=== PATIENT | female | born 1980 | race Two or more races ===

== ENCOUNTER 2016-08-12 02:50 | Inpatient (IN) | payer MEDICAID ==
[2016-08-12 04:09] VITALS: BMI 36.1
[2016-08-12] MEDS ORDERED: LACTATED RINGERS 1,000 ML ONE ×2 (04:15→04:46)
[2016-08-12] MEDS ORDERED: IV START KIT ONE (04:15)
[2016-08-12] MEDS ORDERED: MORPHINE SULFATE (DURAMORPH) 1 MG/ML 10ML AMP ONE (04:22)
[2016-08-12] MEDS ORDERED: SPINAL PROCEDURAL TRAY 1 EACH ONE (04:23)
[2016-08-12] MEDS ORDERED: OXYTOCIN 10 UNITS/ML VIAL ONE ×3 (04:23→05:38)
[2016-08-12] MEDS ORDERED: CEFAZOLIN SODIUM 2 GRAM PREMIX 2 G in Premix (D5W) 100 ml 1 EACH IV PRN (04:35)
[2016-08-12 04:41] LABS: HEMATOCRIT 39.2 % (37.0-47.0); HEMOGLOBIN 13.6 gm/l (12.0-16.0); MEAN CORPUSCULAR HEMOGLOBIN 29.5 pg (27.0-31.0); MEAN CORPUSCULAR HGB CONC 34.7 g/dl (33.0-37.0); RED CELL DISTRIBUTION WIDTH 13.6 % (11.5-14.5)
[2016-08-12] MEDS ORDERED: CEFAZOLIN SODIUM 2 GRAM PREMIX 100 ML IV ONE (04:47)
[2016-08-12] MEDS ORDERED: ONDANSETRON 4 MG/2ML 2 ML VIAL ONE (04:53)
[2016-08-12] MEDS ORDERED: DIPHENHYDRAMINE HCL 50 MG/1 ML VIAL ONE (04:53)
[2016-08-12] MEDS ORDERED: EPHEDRINE SULFATE 50 MG/ML 1ML VIAL ONE (04:53)
[2016-08-12] MEDS: LACTATED RINGERS 1,000 ML IV SCH ×3 (04:56→16:45)
[2016-08-12] MEDS ORDERED: DIPHENHYDRAMINE HCL 25 MG CAPSULE PO PRN (06:38)
[2016-08-12] MEDS ORDERED: DIPHENHYDRAMINE HCL 50 MG/1 ML VIAL IV PRN ×2 (06:38→07:00)
[2016-08-12] MEDS ORDERED: ONDANSETRON 4 MG/2ML 2 ML VIAL IV PRN ×2 (06:38→07:00)
[2016-08-12] MEDS ORDERED: LANOLIN 50 APPLIC/7G TUBE TP PRN (06:38)
[2016-08-12] MEDS ORDERED: IBUPROFEN 800 MG TABLET PO PRN (06:38)
--- NOTE | 2016-08-12 06:43 | PCMBPN ---
Brief Post Op Note: Date of Procedure: 08/12/16 Start Time: see anesth record Preoperative Diagnosis: 1. term iup, ama, h/o c section, active genital herpes, latent syphillis, gbs+. Postoperative Diagnosis: 1. Same Procedure: rcs Surgeon: Hilda Sanchez MD Assist:Dr. Shayy Anderson Anesthesia: Chandu Lancaster crna. Spinal. Findings: vertex girl, normal tubes/ovaries/uterus/placenta. Condition: stable Complications: none IV Fluids: 2200 mLs of LR Urine Output: 300 mLs Estimated Blood Loss: 600 mLs Tourniquet Time: N/A Specimens: N/A Implants: n/a Drains: [N/A]
[2016-08-12] MEDS ORDERED: HYDROMORPHONE HCL 1 MG/ML SYRINGE IV PRN (06:57)
[2016-08-12] MEDS ORDERED: NALBUPHINE HCL 20 MG/ML AMP IV PRN (07:00)
[2016-08-12] MEDS ORDERED: PROMETHAZINE HCL 25 MG/ML VIAL IM PRN (07:00)
[2016-08-12] MEDS ORDERED: NALOXONE HCL 0.4 MG/ML VIAL IV PRN (07:00)
[2016-08-12] MEDS ORDERED: EPHEDRINE SULFATE 50 MG/ML 1ML VIAL IV PRN (07:00)
[2016-08-12] MEDS ORDERED: KETOROLAC TROMETHAMINE 30 MG/ML 1 ML VIAL ONE (07:31)
[2016-08-12] MEDS: FERROUS SULFATE (65 Fe) 325 MG TABLET PO SCH ×2 (09:02→15:06)
[2016-08-12] MEDS: ACYCLOVIR 400 MG TABLET PO SCH ×3 (09:02→21:06)
[2016-08-12] MEDS: PRENATAL VIT/FE FUMARATE/FA 1 TABLET PO SCH ×2 (09:02→15:07)
[2016-08-12] MEDS: DOCUSATE SODIUM 100 MG CAPSULE PO SCH ×2 (09:02→21:05)
--- NOTE | 2016-08-12 09:21 | OP ---
Margarita Vazquez : 1980 [id number] DATE OF SURGERY: 08/12/2016 PREOPERATIVE DIAGNOSES: 1. Term intrauterine . 2. History of section. 3. Active genital herpes. 4. Advanced maternal age. 5. Latin Syphilis. 6. Group B Streptococcus positive. 7. Premature rupture of membranes. POSTOPERATIVE DIAGNOSES: 1. Term intrauterine . 2. History of section. 3. Active genital herpes. 4. Advanced maternal age. 5. Latin Syphilis. 6. Group B Streptococcus positive. 7. Premature rupture of membranes. PROCEDURE: Repeat section. SURGEON: Hilda Sanchez M.D. CUSTOMER CONTACT SPECIALIST: Dr. Shayy Anderson. ANESTHESIA: SHAE Guardado, spinal. BRIEF DESCRIPTION: This is a 36-year-old G5, P3, now P4 who presented to [facility] with premature rupture of membranes which was confirmed after her presentation. Given her history of section and active herpetic lesions she was taken for a section. DESCRIPTION OF OPERATION: The patient was taken to the operating room where spinal anesthesia was placed without difficulty. She was then placed in the supine position and prepped and draped for a sterile procedure. A pfannenstiel incision was then made sharply through the level of the skin through the subcutaneous tissue to the rectus fascia. The rectus fascia was then transversely incised with Isabel scissors. The anterior fascia was then dissected free from the underlying rectus muscles and some scar tissue with blunt dissection and Isabel scissors as well as electrocautery. This was also performed inferiorly. The parietal peritoneum and rectus muscles were then bluntly and the parietal peritoneum was entered bluntly with gentle traction then applied and excellent visualization of the uterus. Bladder blade was placed. An attempt was made to free the vesicouterine peritoneum for the formation of a bladder flap with some effect. The uterus was then entered and was noted to be quite thick as the lower segment had not thinned out. The incision was extended laterally with bandage scissors as it was so thick the bag of brian was then entered and had clear fluid. The was noted to be in vertex presentation and head was flexed and elevated through the uterine incision with moderate fundal pressure. The oropharynx was bulb suctioned. The rest of the female infant was then delivered with a moderate fundal pressure atraumatically. After delayed cord clamped of approximately 1 minute the cord was clamped and cut and the infant was passed to RN for resuscitation. Cord blood was collected and sent to the lab. Placenta was delivered with gentle traction and appeared to be within normal limits and intact. The uterus was then delivered onto the abdominal wall and the remaining bloody contents wiped free with a clean dry lap. The incision was grasped with ring forceps and closed in a two layer approach because of the thickness of the uterus. After a few figure of eight stitches in imbricating layer there was excellent hemostasis. Tubes and ovaries appeared within normal limits. She did have some small fibroids scattered throughout the fundus of the uterus. The remaining blood contents in the abdominal cavity were wiped free with a clean dry lap. The uterus was then placed back into the abdominal cavity and the gutters cleaned of debris with a clean dry lap as well. The uterine incision was once again visualized and showed excellent hemostasis. The parietal peritoneum as well as rectus muscles were then reapproximated with an 0 Vicryl suture in the usual fashion. There was no subfascial bleeding and the fascia was then closed in each corner and proceeding towards the midline. All sponge and needle counts were correct at that point. The subcutaneous tissue showed excellent hemostasis and the skin was then closed with a subcuticular stitch. All sponge and needle counts were once again reported as correct. The patient tolerated the procedure well. Estimated blood loss was 600 mL. Fluids given 2200 mL and urine output was 300 mL. The patient was transported to postoperative recovery room in excellent condition. JOB: [id number]
[2016-08-12] MEDS: IBUPROFEN 600 MG TABLET PO PRN ×2 (12:40→23:11)
--- NOTE | 2016-08-12 17:03 | PDOC36 ---
Provider Note Subject: Addendum: Note: Pt was seen and tx'd for latent syphilis by [facility]. Initial labs: TPall Ab (EIA) positive RPR NR TPall Ab (TP PA) Reactive Follow up lab RPR Titer 1:1 28wk labs: TPall Ab (EIA) positive RPR NR TPall Ab (TP PA) Reactive d/w ID consult at Dr. Los Jones. Stated c/w treated syphilis. TPall ab will always be positive, but expect RPR titer to go to zero, but has decreased sufficiently 1:1. A/P: Treated syphilis Confirm still neg with screening lab
[2016-08-13] MEDS: OXYCODONE/ACETAMINOPHEN 5/325 MG TABLET PO PRN ×5 (00:56→22:33)
[2016-08-13] MEDS: IBUPROFEN 600 MG TABLET PO PRN ×4 (04:19→22:33)
[2016-08-13] MEDS ORDERED: KETOROLAC TROMETHAMINE 30 MG/ML 1 ML VIAL IV PRN (05:00)
[2016-08-13 06:50] LABS: HEMATOCRIT 33.9 % (37.0-47.0); HEMOGLOBIN 11.5 gm/l (12.0-16.0)
[2016-08-13] MEDS: LACTATED RINGERS 1,000 ML IV SCH (07:21)
[2016-08-13] MEDS ORDERED: ACYCLOVIR 400 MG TABLET PO SCH (09:00)
[2016-08-13] MEDS: FERROUS SULFATE (65 Fe) 325 MG TABLET PO SCH (09:34)
[2016-08-13] MEDS: DOCUSATE SODIUM 100 MG CAPSULE PO SCH ×2 (09:34→21:11)
[2016-08-13] MEDS: PRENATAL VIT/FE FUMARATE/FA 1 TABLET PO SCH (09:34)
[2016-08-13] MEDS: ACYCLOVIR 400 MG TABLET PO SCH ×3 (09:34→21:11)
--- NOTE | 2016-08-13 13:49 | PDOC44 ---
- Subjective Day: 2 Reports Pain Tolerable - Objective Temp Pulse Resp BP Pulse Ox 98.1 F 87 18 103/60 98 08/13/16 09:30 08/13/16 09:30 08/13/16 09:30 08/13/16 09:30 08/12/16 09:36 Lab Results 08/13/16 06:40 Hgb 11.5 L D Hct 33.9 L Current Medications Generic Name Dose Route Start Last Admin Trade Name Freq PRN Reason Stop Dose Admin Acyclovir 400 mg 08/12/16 09:00 08/13/16 09:34 Zovirax PO 400 mg TID ZEESHAN Administration Diphenhydramine HCl 25 mg 08/12/16 06:38 Benadryl PO Q6H PRN Itching (Mild/Moderate) Diphenhydramine HCl 25 mg 08/12/16 06:38 Benadryl IV Q6H PRN Itching (Severe) Docusate Sodium 100 mg 08/12/16 09:00 08/13/16 09:34 Colace PO 100 mg BID ZEESHAN Administration Emollient Ointment 1 applic 08/12/16 06:38 [id number] TP PRN PRN sore nipples Ferrous Sulfate 325 mg 08/12/16 09:00 08/13/16 09:34 Ferrous Sulfate PO 325 mg DAILY ZEESHAN Administration Hydromorphone HCl 0.25 - 0.5 mg 08/12/16 06:57 Dilaudid IV PRN PRN Pain (Breakthrough) Lactated Ringer's 1,000 mls @ 100 mls/hr 08/12/16 04:45 08/13/16 07:21 Lactated Ringers IV Not Given .Q10H ZEESHAN Ibuprofen 600 mg 08/12/16 07:08 08/13/16 10:46 Motrin PO 600 mg Q6H PRN Administration Pain Ketorolac Tromethamine 30 mg 08/13/16 05:00 Toradol IV Q6H PRN Pain (Mild/Moderate) Multivi/Iron Carb/Fe Sulf/FA/Prenat 1 tab 08/12/16 09:00 08/13/16 09:34 Plus PO 1 tab DAILY ZEESHAN Administration Ondansetron HCl 4 mg 08/12/16 06:38 Zofran IV Q6H PRN Nausea/Vomiting Oxycodone/Acetaminophen 1 - 2 tab 08/12/16 06:38 08/13/16 09:34 Percocet 5/325 PO 1 tab Q4H PRN Administration Pain (Moderate) Sodium Chloride 10 ml 08/12/16 06:38 08/12/16 21:05 Normal Saline 10ml Flush IV 10 ml PRN PRN Administration IV Flush Sodium Chloride 10 ml 08/12/16 09:00 08/13/16 10:49 Normal Saline 10ml Flush IV 10 ml Q8HR ZEESHAN Administration - Physical Exam General: Afebrile Psych/Mental Status: Mood/Affect Appropriate, Judgment/Insight Intact, Bonding Well Lungs: Clear to Auscultation Bilaterally, Normal Air Movement Cardiovascular: Regular Rate and Rhythm Fundus: Firm, Below Umbilicus Wound QUALITY LEAD: Well Approximated - Problems:Assessment/Plan (1) Delivery by section of full-term Status: Acute Assessment/Plan: Repeat CS for history of and active herpes lesion POD#1 Currently doing well Continue routine care (2) History of latent syphilis Status: Acute Assessment/Plan: Per [facility], pt had positive syphilis and was treated for early latent syphilis that same day. Trep ab tests will always be positive, but RPR now NR, RPR titer was 1:1, d/w ID, Dr Madison at [facility], stated c/w successfully treated syphilis and would hope RPR titer would eventually go to zero. Patient had RPR titer drawn 08/12/16, currently awaiting those results. They should be back tomorrow. Pt with h/o Chlamydia, HSV and Syphillis. SW saw today and patient states transmission coming from significant other, but she doesn't ask questions. Needs to have close followup at [place]. (3) Genital herpes affecting Status: Acute Assessment/Plan: New infection at 29w0d, HSV2+ via culture. Started on acyclovir 400mg TID. Pt developed lesions
[2016-08-14] MEDS: IBUPROFEN 600 MG TABLET PO PRN ×3 (04:57→21:46)
[2016-08-14] MEDS: PRENATAL VIT/FE FUMARATE/FA 1 TABLET PO SCH (09:10)
[2016-08-14] MEDS: FERROUS SULFATE (65 Fe) 325 MG TABLET PO SCH (09:10)
[2016-08-14] MEDS: OXYCODONE/ACETAMINOPHEN 5/325 MG TABLET PO PRN ×3 (09:10→21:46)
[2016-08-14] MEDS: DOCUSATE SODIUM 100 MG CAPSULE PO SCH ×2 (09:10→21:46)
[2016-08-14] MEDS: ACYCLOVIR 400 MG TABLET PO SCH ×3 (09:11→21:46)
--- NOTE | 2016-08-14 15:57 | PDOC44 ---
- Subjective Day: 2 Reports Flatus, Reports Pain Tolerable, Reports , Reports Lochia Light, Reports Tolerating Regular Diet - Objective Temp Pulse Resp BP Pulse Ox 98.6 F 81 16 110/52 98 08/14/16 09:00 08/14/16 09:00 08/14/16 09:00 08/14/16 09:00 08/12/16 09:36 Current Medications Generic Name Dose Route Start Last Admin Trade Name Freq PRN Reason Stop Dose Admin Acyclovir 400 mg 08/12/16 09:00 08/14/16 09:11 Zovirax PO 400 mg TID ZEESHAN Administration Diphenhydramine HCl 25 mg 08/12/16 06:38 Benadryl PO Q6H PRN Itching (Mild/Moderate) Diphenhydramine HCl 25 mg 08/12/16 06:38 Benadryl IV Q6H PRN Itching (Severe) Docusate Sodium 100 mg 08/12/16 09:00 08/14/16 09:10 Colace PO 100 mg BID ZEESHAN Administration Emollient Ointment 1 applic 08/12/16 06:38 [id number] TP PRN PRN sore nipples Ferrous Sulfate 325 mg 08/12/16 09:00 08/14/16 09:10 Ferrous Sulfate PO 325 mg DAILY ZEESHAN Administration Hydromorphone HCl 0.25 - 0.5 mg 08/12/16 06:57 Dilaudid IV PRN PRN Pain (Breakthrough) Lactated Ringer's 1,000 mls @ 100 mls/hr 08/12/16 04:45 08/13/16 07:21 Lactated Ringers IV Not Given .Q10H ZEESHAN Ibuprofen 600 mg 08/12/16 07:08 08/14/16 11:54 Motrin PO 600 mg Q6H PRN Administration Pain Ketorolac Tromethamine 30 mg 08/13/16 05:00 Toradol IV Q6H PRN Pain (Mild/Moderate) Multivi/Iron Carb/Fe Sulf/FA/Prenat 1 tab 08/12/16 09:00 08/14/16 09:10 Plus PO 1 tab DAILY ZEESHAN Administration Ondansetron HCl 4 mg 08/12/16 06:38 Zofran IV Q6H PRN Nausea/Vomiting Oxycodone/Acetaminophen 1 - 2 tab 08/12/16 06:38 08/14/16 09:10 Percocet 5/325 PO 1 tab Q4H PRN Administration Pain (Moderate) Sodium Chloride 10 ml 08/12/16 06:38 08/13/16 21:10 Normal Saline 10ml Flush IV 10 ml PRN PRN Administration IV Flush Sodium Chloride 10 ml 08/12/16 09:00 08/13/16 21:58 Normal Saline 10ml Flush IV Not Given Q8HR ZEESHAN - Physical Exam General: Afebrile, No Acute Distress Psych/Mental Status: Mood/Affect Appropriate, Bonding Well Neurological: Alert, Oriented x 4 Lungs: Clear to Auscultation Bilaterally Cardiovascular: Regular Rate and Rhythm Breast: Nipples Intact Fundus: Firm, Midline Extremities: Full ROM, No Edema, No Tenderness Skin: Normal Color, Warm, Dry, Intact, No Rash Wound MEDICAL CARE ADMINISTRATOR: Dressing Clean/Dry/Intact, Well Approximated - Problems:Assessment/Plan (1) Delivery by section of full-term Status: Acute Assessment/Plan: Repeat CS for history of and active herpes lesion POD#2 Currently doing well Continue routine care (2) Genital herpes affecting Status: Acute Assessment/Plan: New infection at 29w0d, HSV2+ via culture. Started on acyclovir 400mg TID. Pt developed lesions and was taken for a Cesarian section (3) History of latent syphilis Status: Acute Assessment/Plan: Per [facility], pt had positive syphilis and was treated for early latent syphilis that same day. Trep ab tests will always be positive, but RPR was NR on last check in clinic. Case d/w ID, Dr Madison at [facility], stated c /w successfully treated syphilis and would hope RPR titer would eventually go to zero. Patient had labs drawn 08/12/16. Unfortunately results still show "pending" today. I called [facility] services in [place] and discussed this with Julian in serology who explained to me that per the reverse algorithm, pt was non-reactive for RPR which then reflexes to TPPA and this was positive. As RPR is non-reactive, this means titers are zero. (Apparently [facility] is having difficulties pushing these results through to [employer], I asked for a fax and placed in into patient's chart). -Would advise to check again with health department or ID re management, both mom and baby will probably need screening at certain intervals. Pt with also with h/o Chlamydia and HSV. SW saw yesterday and patient states transmission coming from significant other, but she doesn't ask questions. Needs to have close followup at [place]. Disposition: Anticipate DC Home Tomorrow
[2016-08-15] MEDS: OXYCODONE/ACETAMINOPHEN 5/325 MG TABLET PO PRN ×2 (03:02→09:41)
[2016-08-15] MEDS: IBUPROFEN 600 MG TABLET PO PRN (04:52)
[2016-08-15] MEDS: ACYCLOVIR 400 MG TABLET PO SCH (09:40)
[2016-08-15] MEDS: FERROUS SULFATE (65 Fe) 325 MG TABLET PO SCH (09:40)
[2016-08-15] MEDS: PRENATAL VIT/FE FUMARATE/FA 1 TABLET PO SCH (09:41)
[2016-08-15] MEDS: DOCUSATE SODIUM 100 MG CAPSULE PO SCH (09:41)
--- NOTE | 2016-08-15 11:29 | PDOC39B ---
Hospital Course: ADMIT DATE: 08/12/16 DISCHARGE DATE: 08/15/16 ADMISSION DIAGNOSES: History of previous section with spontaneous rupture of membranes and active HSV lesion PROCEDURES: Repeat section HISTORY OF PRESENT ILLNESS: 36 year old G5 T3 L3 at 37 weeks 2 days presenting with spontaneous rupture of membranes, history of previous section and active HSV lesion. HOSPITAL COURSE: The patient was admitted with SROM for repeat section given for history of previous section and active HSV lesion. She underwent this procedure on 08/12 with no complications. Her period was uncomplicated. She received support. Her pain was controlled with oral medications. By day of discharge the patient is ambulating, eating, voiding, and passing flatus without difficulty. Pain is controlled and lochia is appropriate. She is . - Physical Exam Vital Signs: Temp Pulse Resp BP Pulse Ox 98.7 F 82 16 131/67 98 08/15/16 07:30 08/15/16 07:30 08/15/16 07:30 08/15/16 07:30 08/12/16 09:36 General: Afebrile, No Acute Distress Psych/Mental Status: Bonding Well Neurological: Alert, Normal Gait, Normal Speech Lungs: Clear to Auscultation Bilaterally, Normal Air Movement Cardiovascular: Regular Rate and Rhythm, Normal S1, Normal S2 Breast: Nipples Intact Fundus: Firm, Midline Extremities: Full ROM, No Edema Skin: Normal Color, Warm, Dry, Intact, No Rash Wound: Well Approximated, No Drainage, No Erythema - Discharge Diagnosis (1) Delivery by section of full-term Status: Acute Assessment/Plan: Repeat CS for history of and active herpes lesion POD#3 Currently doing well Stable for discharge (2) Genital herpes affecting Status: Acute Assessment/Plan: New infection at 29w0d, HSV2+ via culture. Started on acyclovir 400mg TID. Pt developed lesions and was taken for a Cesarian section (3) History of latent syphilis Status: Acute Assessment/Plan: Per [facility], pt had positive syphilis and was treated for early latent syphilis that same day. Trep ab tests will always be positive, but RPR was NR on last check in clinic. Case d/w ID, Dr Madison at [facility], stated c /w successfully treated syphilis and would hope RPR titer would eventually go to zero. Patient had labs drawn 08/12/16. Unfortunately results still show "pending" today. I called [facility] services in [place] and discussed this with Julian in serology who explained to me that per the reverse algorithm, pt was non-reactive for RPR which then reflexes to TPPA and this was positive. As RPR is non-reactive, this means titers are zero. (Apparently [facility] is having difficulties pushing these results through to [email or web address], I asked for a fax and placed in into patient's chart). -Would advise to check again with health department or ID re management, both mom and baby will probably need screening at certain intervals. Pt with also with h/o Chlamydia and HSV. SW saw patient and states transmission coming from significant other, but she doesn't ask questions. Needs to have close followup at [place]. - Discharge Plan Condition: Good Disposition: Home Prescriptions: Docusate Sodium [COLACE 100 MG CAPSULE (SHF)] 100 mg PO BID PRN #60 capsule PRN Reason: Constipation Ibuprofen [IBUPROFEN 600 MG TABLET (SHF)] 600 mg PO Q6H PRN #40 tablet PRN Reason: Pain Oxycodone HCl/Acetaminophen [PERCOCET 5/325 MG TABLET (SHF)] 1 - 2 tab PO Q4H PRN #40 tablet PRN Reason: Pain (Moderate) Acyclovir [ZOVIRAX 400 MG TABLET (SHF)] 400 mg PO TID #30 tablet Follow-Up: Ella Solano PA [Primary Care Provider] - 08/17/16 10:40 am
[2016-08-15 12:06] VITALS: BP 130/75
== END 2016-08-15 14:24 | disposition home or self-care (01) | DRG 765 ==
LOC: FBC 02:50 → FBCOUT 02:50 → FBC 04:05 → FBCOUT 04:05
PROVIDERS: ADMIT Family Medicine; ATTEND Family Medicine
PROC: 10D00Z1 Extraction of Products of Conception, Low, Open Approach (ICD-10-PCS; principal; 2016-08-12)
DX: O42.92 Full-term premature rupture of membranes, unspecified as to length of time between rupture and onset of labor (principal); O98.32 Other infections with a predominantly sexual mode of transmission complicating childbirth; O98.12 Syphilis complicating childbirth; O34.211 Maternal care for low transverse scar from previous cesarean delivery; Z37.0 Single live birth; Z3A.37 37 weeks gestation of pregnancy; O99.824 Streptococcus B carrier state complicating childbirth; A60.00 Herpesviral infection of urogenital system, unspecified; A53.0 Latent syphilis, unspecified as early or late